=== PATIENT | female | born 1970 | race Caucasian/White ===

== ENCOUNTER 2018-05-11 18:35 | Observation (INO) | payer BC ==
[~2018-05-11] VITALS: Ht 160 cm; Wt 67.7 kg
[2018-05-11 18:53] LABS: BASOPHIL (%) 0.5 % (0-1); BASOPHIL COUNT 0.1 K/uL (0-0.1); EOSINOPHIL (%) 0.9 % (0-5); EOSINOPHIL COUNT 0.1 K/uL (0-0.3); HEMOGLOBIN 12.1 G/DL (11.9-15.5); IMMATURE GRANULOCYTE (%) 0.6 % (0.0-0.7); LYMPHOCYTE (%) 29.4 % (15-42); MCH 33.1 PG (29.0-34.0); MCHC 35.6 G/DL (30.0-36.0); MCV 92.9 FL (83-99); MONOCYTE (%) 7.9 % (3-12); MONOCYTE COUNT 0.8 K/uL (0-0.8); NEUTROPHIL (%) 60.7 % (45-76); NEUTROPHIL COUNT 6.1 K/uL (1.8-6.4); PLATELET COUNT 300 K/uL (156-360); RBC DIS.WIDTH-CV 11.4 % (11.8-14.6); RBC DIS.WIDTH-SD 38.9 % (39-53); RED BLOOD COUNT 3.66 M/uL (3.80-5.20); WHITE BLOOD COUNT 10.1 K/uL (4.1-10.2)
[2018-05-11 19:09] LABS: AMYLASE 63 IU/L (1-118); CHLORIDE 104 mEq/L (99-109)
[2018-05-11 19:10] LABS: SODIUM 136 mEq/L (136-147)
[2018-05-11 19:11] LABS: GLUCOSE 135 mg/dL (70-99)
[2018-05-11 19:14] LABS: SERUM ETHYL ALCOHOL 183 mg/dL
[2018-05-11 19:15] LABS: CREATININE 0.8 mg/dL (0.6-1.3); GFR ESTIMATE (CALCULATED) > 59 mL/min/
[2018-05-11 19:16] LABS: UREA NITROGEN (BUN) 17 mg/dL (9-23)
[2018-05-11 19:18] LABS: LIPASE 63 U/L (1.0-51.0)
[2018-05-11 19:27] LABS: QUANTITATIVE HCG < 4.0 MIU/ML
[2018-05-11] MEDS ORDERED: LOSARTAN POTAS100 MG PO (22:53)
[2018-05-11] MEDS ORDERED: ADVIL COLD &1 TABLET PO (22:54)
[2018-05-11] MEDS ORDERED: ATIVAN0.5 MG PO (22:54)
[2018-05-12 03:40] VITALS: BP 116/53
[2018-05-12 05:01] LABS: HEMATOCRIT 31.3 % (36.0-46.0); MCH 32.6 PG (29.0-34.0); MCHC 35.1 G/DL (30.0-36.0); MCV 92.9 FL (83-99); PLATELET COUNT 253 K/uL (156-360); RBC DIS.WIDTH-CV 11.5 % (11.8-14.6); RBC DIS.WIDTH-SD 39.1 % (39-53); RED BLOOD COUNT 3.37 M/uL (3.80-5.20); WHITE BLOOD COUNT 10.6 K/uL (4.1-10.2)
[2018-05-12 05:39] LABS: ALBUMIN 3.5 G/DL (3.2-4.8); ALKALINE PHOSPHATASE 42 IU/L (3-129); ALT (GPT) 36 IU/L (3-49); AST (GOT) 39 IU/L (2-34); CHLORIDE 103 MEQ/L (99-109); CREATININE 0.6 MG/DL (0.6-1.3); GFR ESTIMATE (CALCULATED) > 59 mL/min/; GLUCOSE 141 mg/dL (70-99); POTASSIUM 3.8 MEQ/L (3.7-5.4); SODIUM 136 MEQ/L (136-147); TOTAL BILIRUBIN 0.8 MG/DL (0.0-1.0); TOTAL PROTEIN 5.6 G/DL (6.4-8.3); UREA NITROGEN (BUN) 12 mg/dL (9-23)
[2018-05-12 07:46] VITALS: BP 105/65
[2018-05-12 10:47] VITALS: BP 124/69
[2018-05-12] MEDS ORDERED: ULTRAM50 MG PO (13:58)
== END 2018-05-12 15:41 | disposition home or self-care (01) ==
LOC: TRA 18:35 → ENPENDDIS 05-12 → 4EAST 05-12 00:55 → EDOF 05-12 00:55 → ENRESERV 05-12 01:11 → 4EAST 05-12 03:40
PROVIDERS: Emergency Medicine; Surgery
PROC: 0HQ0XZZ Repair Scalp Skin, External Approach (ICD-10-PCS; principal; 2018-05-12)
DX: S42.022A Displaced fracture of shaft of left clavicle, initial encounter for closed fracture (principal); S22.42XA Multiple fractures of ribs, left side, initial encounter for closed fracture; S43.102A Unspecified dislocation of left acromioclavicular joint, initial encounter; S00.03XA Contusion of scalp, initial encounter; S01.01XA Laceration without foreign body of scalp, initial encounter; T75.1XXA Unspecified effects of drowning and nonfatal submersion, initial encounter; W17.89XA Other fall from one level to another, initial encounter; Y93.11 Activity, swimming; Y92.008 Other place in unspecified non-institutional (private) residence as the place of occurrence of the external cause
CPT/HCPCS: 70450; 71045; 71260; 72125; 73000; 73030; 74177; 80048; 80053; 80306 90; 81003; 82150; 82948; 83690; 84702; 85025; 85027; 86850; 86900; 86901; 99281; 99285; G0378; G0480; J2060; J3010; J7120